=== PATIENT | male | born 1970 | race Caucasian/White ===

== ENCOUNTER 2024-11-18 10:30 | Outpatient (OUT) | payer BC, SELFPAY | END 2024-11-18 10:31 | disposition home or self-care (01) | LOC: SLEEP 11-19 09:38 | PROVIDERS: PCP Internal Medicine; Visit Provider Internal Medicine | DX: G47.33 Obstructive sleep apnea (adult) (pediatric) (principal); R09.02 Hypoxemia | CPT/HCPCS: 95806 ==